=== PATIENT | female | born 1990 | race Caucasian/White ===

== ENCOUNTER 2017-11-19 19:45 | Observation (INO) | payer OTHER ==
[~2017-11-19] VITALS: Ht 154.9 cm; Wt 97.5 kg
[2017-11-19] MEDS ORDERED: PREN1TAB78 MT (20:45)
[2017-11-19] MEDS ORDERED: LACTATED RINGERS 1,000 ML IV SCH (21:15)
[2017-11-19] MEDS ORDERED: TERBUTALINE SULFATE 1MG/ML VIAL SUBCUT PRN (21:15)
[2017-11-19 22:58] LABS: CLARITY URINE CLOUDY (CLEAR); COLOR URINE YELLOW (YELLOW); KETONES URINE NEGATIVE (NEGATIVE); LEUKOCYTE ESTERASE URINE TRACE (NEGATIVE); NITRITE URINE NEGATIVE (NEGATIVE); OCCULT BLOOD URINE NEGATIVE (NEGATIVE); PROTEIN URINE 2+ (NEGATIVE); SPECIFIC GRAVITY URINE 1.029 (1.005-1.030); UROBILINOGEN URINE 0.2 E.U./dL (0.2-1.0)
[2017-11-20] MEDS ORDERED: CEFAZOLIN 2,000 MG in DEXT 5% WATER 100 ML IV NR ×2
== END 2017-11-20 00:40 | disposition home or self-care (01) ==
LOC: L&D 19:45
PROVIDERS: ADMIT Obstetrics & Gynecology; ATTEND Obstetrics & Gynecology
DX: O26.893 Other specified pregnancy related conditions, third trimester (principal); R10.30 Lower abdominal pain, unspecified; Z3A.37 37 weeks gestation of pregnancy
CPT/HCPCS: 81003; 96361; 96365; 96372; 99281; G0378; J0690; J3105; J7120; 96360; J7060

== ENCOUNTER 2017-11-20 12:15 | Inpatient (IN) | payer OTHER ==
[~2017-11-20] VITALS: Ht 154.9 cm; Wt 97.5 kg
[~2017-11-20 12:15] MED LIST: PREN1TAB78 MT
[2017-11-20] MEDS ORDERED: DEXT 5%/LR + PITOCIN 20UNITS/L 1,000 ML IV SCH (14:01)
[2017-11-20] MEDS ORDERED: NALOXONE HCL 0.4 MG/ML 1ML VIAL IM PRN (14:15)
[2017-11-20] MEDS ORDERED: METHYLERGONOVINE MALEATE 0.2 MG/ML IM PRN (14:15)
[2017-11-20] MEDS ORDERED: CARBOPROST TROMETHAMINE 250 MCG/ML AMPUL IM PRN (14:15)
[2017-11-20] MEDS: LACTATED RINGERS 1,000 ML IV SCH ×2 (14:21→14:45)
[2017-11-20] MEDS ORDERED: BUTORPHANOL TARTRATE 2 MG/ML VIAL IM SCH (14:45)
[2017-11-20 15:18] LABS: CLARITY URINE CLOUDY (CLEAR); COLOR URINE DARK YELLOW (YELLOW); KETONES URINE NEGATIVE (NEGATIVE); LEUKOCYTE ESTERASE URINE 1+ (NEGATIVE); NITRITE URINE NEGATIVE (NEGATIVE); OCCULT BLOOD URINE 3+ (NEGATIVE); PH URINE 5.5 (4.5-8.0); PROTEIN URINE 2+ (NEGATIVE)
[2017-11-20 15:31] LABS: BASOPHILS % 0.4 % (0.0-2.0); HEMATOCRIT. 29.5 % (36.0-48.0); LYMPHOCYTES % 13.7 % (20.0-50.0); MEAN CORPUSCULAR HEMOGLOBIN 27.6 pg (28.0-32.0); MEAN CORPUSCULAR VOLUME 81.4 fL (81.0-99.0); MONOCYTES % 5.1 % (2.0-8.0); NEUTROPHILS % 80.8 % (40.0-76.0); PLATELET 257 x1000/uL (130-400); RED BLOOD CELL COUNT 3.63 mill/uL (4.2-5.4); RED CELL DISTRIBUTION WIDTH 17.4 % (11.6-14.6)
[2017-11-20 15:35] LABS: *COCAINE SCREEN URINE NEGATIVE (NEGATIVE)
[2017-11-20 15:36] LABS: *BARBITURATES SCREEN URINE NEGATIVE (NEGATIVE)
[2017-11-20 15:37] LABS: *BENZODIAZEPINES SCREEN URINE NEGATIVE (NEGATIVE); OPIATES URINE SCREEN NEGATIVE (NEGATIVE)
[2017-11-20 15:38] LABS: CANNABINOID URINE SCREEN NEGATIVE (NEGATIVE); METHADONE URINE SCREEN NEGATIVE (NEGATIVE); PHENCYCLIDINE URINE SCREEN NEGATIVE (NEGATIVE)
[2017-11-20 15:56] LABS: *AMPHETAMINES SCREEN URINE PRESUMTIVE POSITIVE (NEGATIVE)
[2017-11-20 16:03] LABS: HEPATITIS B SURFACE ANTIGEN NEGATIVE
[2017-11-20 16:26] LABS: RUBELLA IGG > 500.0 IU/mL (4.99-10)
[2017-11-20 17:55] LABS: CHLORIDE 107 mEq/L (98-107)
[2017-11-20] MEDS ORDERED: MORPHINE SULFATE/PF 1MG/ML 10ML AMP ONE (21:21)
[2017-11-20] MEDS ORDERED: ETOMIDATE 2MG/ML 10ML VIAL IV ONE (21:22)
[2017-11-20] MEDS ORDERED: EPHEDRINE SULFATE 50MG/ML VIAL ONE (21:22)
[2017-11-20] MEDS ORDERED: CEFAZOLIN 2000MG PREMIX 100 ML IV ONE (21:22)
[2017-11-20] MEDS ORDERED: PHENYLEPHRINE HCL 10 MG/ML 1ML (IV VIAL) IV ONE (21:24)
[2017-11-20] MEDS ORDERED: ONDANSETRON HCL 4MG/2ML VIAL ONE (21:40)
[2017-11-20] MEDS ORDERED: DIPHENHYDRAMINE 50MG/ML VIAL IV PRN (22:00)
[2017-11-20] MEDS ORDERED: ONDANSETRON HCL 4MG/2ML VIAL IV PRN ×2 (22:00→22:15)
[2017-11-20] MEDS ORDERED: KETOROLAC 30MG/ML VIAL IV PRN (22:00)
[2017-11-20] MEDS ORDERED: MEPERIDINE HCL/PF 25MG/ML CPJ IV PRN (22:00)
[2017-11-20] MEDS ORDERED: MORPHINE SULFATE 4 MG/ML CPJ (NOT FOR IM USE) IV PRN ×2 (22:00)
[2017-11-20] MEDS ORDERED: FENTANYL CITRATE/PF 50MCG/ML 2ML VIAL IV PRN ×3 (22:00)
[2017-11-20] MEDS ORDERED: DEXAMETHASONE 10 MG/ML VIAL IV PRN (22:00)
[2017-11-20] MEDS ORDERED: IBUPROFEN 800 MG in SODIUM CHLORIDE 0.9% 250 ML IV NR (22:00)
[2017-11-20] MEDS ORDERED: IBUPROFEN 400MG TABLET PO PRN (22:15)
[2017-11-20] MEDS ORDERED: LANOLIN OINT 0.25 GM TUBE TOP PRN (22:15)
[2017-11-20] MEDS ORDERED: RHO(D) IMMUNE GLOBULIN 300 MCG/SYR IM PRN (22:15)
[2017-11-20] MEDS ORDERED: HYDROCODONE/ACETAMINOPHEN 5/325MG TABLET PO PRN (22:15)
[2017-11-20 23:28] LABS: INR 0.9; PROTHROMBIN TIME 9.1 sec (9.1-11.1)
[2017-11-20] MEDS: DEXT 5%/LR + PITOCIN 20UNITS/L 1,000 ML IV SCH (23:31)
[2017-11-21] VITALS (7 sets, daily range): BP systolic 130–149; BP diastolic 75–87
[2017-11-21] MEDS: DEXT 5%/LR + PITOCIN 20UNITS/L 1,000 ML IV SCH (01:16)
[2017-11-21 08:19] LABS: BASOPHILS % 0.4 % (0.0-2.0); HEMATOCRIT. 28.1 % (36.0-48.0); HEMOGLOBIN. 9.4 g/dL (12.0-16.0); LYMPHOCYTES % 14.5 % (20.0-50.0); MEAN CORPUSCULAR HEMOGLOBIN 27.8 pg (28.0-32.0); MEAN CORPUSCULAR VOLUME 83.2 fL (81.0-99.0); MEAN PLATELET VOLUME 8.8 fl (7.4-10.4); MONOCYTES % 6.9 % (2.0-8.0); NEUTROPHILS % 78.2 % (40.0-76.0); PLATELET 223 x1000/uL (130-400); RED BLOOD CELL COUNT 3.38 mill/uL (4.2-5.4); RED CELL DISTRIBUTION WIDTH 17.8 % (11.6-14.6)
[2017-11-21] MEDS: PRENATAL VIT/FE FUMARATE/FA TABLET PO SCH (10:11)
[2017-11-21] MEDS: ACETAMINOPHEN WITH CODEINE 300/30MG TABLET PO PRN (21:32)
[2017-11-22] MEDS: ACETAMINOPHEN WITH CODEINE 300/30MG TABLET PO PRN ×3 (02:59→21:56)
[2017-11-22 03:43] VITALS: BP 137/84
[2017-11-22] MEDS ORDERED: BISACODYL 5MG TABLET PO PRN (03:45)
[2017-11-22 07:33] VITALS: BP 128/73
[2017-11-22] MEDS: PRENATAL VIT/FE FUMARATE/FA TABLET PO SCH (08:27)
[2017-11-22 16:00] VITALS: BP 131/81
[2017-11-22 22:00] VITALS: BP 146/88
[2017-11-23] MEDS: ACETAMINOPHEN WITH CODEINE 300/30MG TABLET PO PRN (04:44)
[2017-11-23 05:38] VITALS: BP 128/54
[2017-11-23 08:00] VITALS: BP 134/80
[2017-11-23] MEDS: PRENATAL VIT/FE FUMARATE/FA TABLET PO SCH (09:22)
== END 2017-11-23 16:40 | disposition home or self-care (01) | DRG 540 ==
LOC: OBSVTOIN 12:15 → L&D 12:15 → 7EST PP/OB 11-21 01:36
PROVIDERS: ADMIT Obstetrics & Gynecology; ATTEND Obstetrics & Gynecology
PROC: 10D00Z1 Extraction of Products of Conception, Low, Open Approach (ICD-10-PCS; principal; 2017-11-20 21:00)
DX: O34.211 Maternal care for low transverse scar from previous cesarean delivery (principal); D62 Acute posthemorrhagic anemia; O77.0 Labor and delivery complicated by meconium in amniotic fluid; O99.02 Anemia complicating childbirth; Z37.0 Single live birth; Z3A.00 Weeks of gestation of pregnancy not specified
CPT/HCPCS: 36415; 80053; 80305; 80307; 81003; 85025; 85610; 85730; 86592; 86703; 86762; 86850; 86900; 86920; 87340; 88307; C1893; G0378; J0595; J0690; J1200; J1741; J1885; J2274; J2370; J2405; J2590; J3490; J7050; J7120; A4315